=== PATIENT | male | born 1980 | race Two or more races ===

== ENCOUNTER 2018-04-12 11:45 | Outpatient (CLI) | payer OTHER | END 2018-04-12 15:57 | disposition home or self-care (01) | LOC: RAD 501 11:45 | DX: M25.531 Pain in right wrist (principal) ==

== ENCOUNTER → 2018-11-09 | Outpatient (CLI) | payer OTHER | END | disposition home or self-care (01) | LOC: RAD 501 09:54 | DX: S99.912A Unspecified injury of left ankle, initial encounter (principal) ==